=== PATIENT | male | born 1975 | race Caucasian/White ===

== ENCOUNTER 2022-09-15 14:45 | Observation (INO) | payer OTHER ==
[2022-09-15 14:53] VITALS: RESP 18; BMI 28.7
[2022-09-15 16:20] LABS: BASO % 0.5 % (0-2.0); HEMATOCRIT 46.2 % (35.4-49); HEMOGLOBIN 15.3 GM/dL (11.7-16.9); LYMPH % 19.2 % (8-40); MCH 28.2 pg (25.7-33.7); MCHC 33.1 g/dl (32.0-35.9); MEAN CELL VOLUME 85.2 fl (80-96); MEAN PLT VOLUME 8.3 fl (7.5-11.1); MONO % 7.2 % (3.8-10.2); NEUT % 72.1 % (42.8-82.8); PLATELET COUNT 388 10^3/uL (134-434); RBC 5.42 M/mm3 (4.00-5.60); WHITE BLOOD COUNT 13.2 K/mm3 (4.0-10.0)
[2022-09-15 16:26] LABS: INR 1.01 (0.83-1.09); PROTHROMBIN TIME (PATIENT) 11.7 SEC (9.7-13.0)
[2022-09-15] MEDS ORDERED: LIDOCAINE 5% TOPICAL PATCH TP ONE (16:35)
[2022-09-15 16:44] LABS: ALBUMIN 4.5 g/dl (3.4-5.0)
[2022-09-15 16:45] LABS: CALCIUM 9.7 mg/dL (8.5-10.1)
[2022-09-15 16:46] LABS: BLOOD UREA NITROGEN 16.6 mg/dL (7-18)
[2022-09-15 16:48] LABS: CREATININE 0.7 mg/dL (0.55-1.3)
[2022-09-15 16:49] LABS: BILIRUBIN,TOTAL 0.5 mg/dL (0.2-1); TOT PROT 8.2 g/dl (6.4-8.2)
[2022-09-15] MEDS ORDERED: LIDOCAINE 5% TOPICAL PATCH ONE (17:04)
[2022-09-15 20:36] VITALS: BP 147/76; PULSE 109; TEMP 98.3
[2022-09-15] MEDS ORDERED: methylPREDNISolone NA SUCC 125 MG/2 ML VIAL IVPUSH ONE (21:09)
[2022-09-15] MEDS ORDERED: methylPREDNISolone NA SUCC 125 MG/2 ML VIAL ONE (22:14)
== END 2022-09-15 22:00 | disposition home or self-care (01) ==
LOC: JER 14:45 → JERBED 18:02
PROC: 3E033GC Introduction of Other Therapeutic Substance into Peripheral Vein, Percutaneous Approach (ICD-10-PCS; principal; 2022-09-15)
DX: M54.12 Radiculopathy, cervical region (principal); E11.9 Type 2 diabetes mellitus without complications; E78.5 Hyperlipidemia, unspecified
CPT/HCPCS: 0241U-QW; 36415; 71046-TC-FY; 72125-TC; 72141-TC; 80053; 84484; 85025; 85379; 85610; 86850; 86900; 86901; 99285-25; G0378